=== PATIENT | female | born 1960 | race Caucasian/White ===

== ENCOUNTER 2021-01-23 15:52 | Outpatient (CLI) | payer SELFPAY ==
[~2021-01-23 15:52] MED LIST: OMNIPAQUE 350 MG/ML, 100ML BOTTLE ONE
== END 2021-01-23 23:59 | disposition home or self-care (01) ==
LOC: RAD 15:52
PROVIDERS: ATTEND Family Medicine
DX: K76.0 Fatty (change of) liver, not elsewhere classified (principal); K44.9 Diaphragmatic hernia without obstruction or gangrene
CPT/HCPCS: 74183; Q9967